=== PATIENT | male | born 1990 | race Caucasian/White ===

== ENCOUNTER 2016-12-18 17:32 | Emergency (ER) | payer OTHER ==
[~2016-12-18] VITALS: Ht 170.2 cm; Wt 80.0 kg
[2016-12-18 17:34] VITALS: BP 153/92
[2016-12-18] MEDS ORDERED: HYDROcodone/APAP 5/325 TABLET ONE (17:57)
[2016-12-18] MEDS ORDERED: ONDANSETRON ODT 4 MG ONE (17:58)
[2016-12-18] MEDS ORDERED: ONDANSETRON ODT 4 MG PO ONE (18:00)
[2016-12-18] MEDS ORDERED: HYDROcodone/APAP 5/325 TABLET PO ONE (18:00)
== END 2016-12-18 19:17 | disposition home or self-care (01) ==
LOC: ED 19:16
DX: S93.402A Sprain of unspecified ligament of left ankle, initial encounter (principal); X58.XXXA Exposure to other specified factors, initial encounter; Y93.31 Activity, mountain climbing, rock climbing and wall climbing; Y92.89 Other specified places as the place of occurrence of the external cause; Y99.8 Other external cause status
CPT/HCPCS: 73610; 99284; Q0162

== ENCOUNTER 2017-06-12 07:09 | Emergency (ER) | payer OTHER ==
[~2017-06-12] VITALS: Ht 172.7 cm; Wt 87.0 kg
[2017-06-12] MEDS ORDERED: DIPH,PERTUSS(ACELL),TET VAC/PF 0.5 ML IM-VACC ONE ×2 (07:30→07:41)
[2017-06-12 08:40] VITALS: BP 125/77
[2017-06-12] MEDS ORDERED: BACITRACIN ZINC OINT 500U/GM, 0.9 GM ONE (08:43)
== END 2017-06-12 09:10 | disposition home or self-care (01) ==
LOC: ED 07:55
DX: S00.81XA Abrasion of other part of head, initial encounter (principal); F10.129 Alcohol abuse with intoxication, unspecified; Y04.0XXA Assault by unarmed brawl or fight, initial encounter; Y93.89 Activity, other specified; Y92.89 Other specified places as the place of occurrence of the external cause; Y99.8 Other external cause status
CPT/HCPCS: 70450; 72125; 90471; 90715